=== PATIENT | male | born 1945 | race Asian ===

== ENCOUNTER 2017-12-13 23:48 | Emergency (ER) | payer OTHER ==
[~2017-12-13] VITALS: Ht 170.2 cm; Wt 57.7 kg
[~2017-12-13 23:48] MED LIST: ASPI-556 PO; ATOR10TA84 PO; CLOP75 PO; FERR-89 PO; LISI-661 PO
[2017-12-14 00:55] LABS: HEMATOCRIT 43.8 % (41-53); HEMOGLOBIN 14.9 g/dL (13.5-17.5); MEAN CORPUSCULAR HEMOGLOBIN 31.1 pg (26.0-34.0); MEAN CORPUSCULAR HGB CONC 33.9 G/dL (31.0-37.0); MEAN CORPUSCULAR VOLUME 92 fL (80-100); PLATELET COUNT (AUTO) 265 K/uL (150-450); RED BLOOD CELL COUNT(AUTO) 4.78 MIL/uL (4.50-5.90); RED CELL DISTRIBUTION WIDTH 14.7 % (11.5-14.5)
[2017-12-14 00:57] LABS: CREATININE 1.35 mg/dL (0.60-1.30); POTASSIUM 4.6 mmol/L (3.5-5.1)
[2017-12-14 01:04] LABS: ALBUMIN 3.8 g/dL (3.4-5.0); BILIRUBIN,TOTAL 0.4 mg/dL (0.1-1.0); TOTAL PROTEIN, SERUM 7.3 g/dL (6.4-8.2)
[2017-12-14 01:23] LABS: BAND NEUTROPHILS % (MANUAL) 12 % (0-5); EOSINOPHILS % (MANUAL) 4 % (1-6); LYMPHOCYTES % (MANUAL) 7 % (22-44); MONOCYTES % (MANUAL) 7 % (2-9); SEGMENTED NEUTROPHILS % 70 % (40-70)
[2017-12-14] MEDS ORDERED: ACETAMINOPHEN 500 MG TABLET PO ONE (01:30)
[2017-12-14] MEDS ORDERED: ONDANSETRON HCL 4 MG/2 ML VIAL IVP ONE (01:30)
[2017-12-14] MEDS ORDERED: MECLIZINE HCL 25 MG TABLET PO ONE (01:30)
[2017-12-14 03:18] VITALS: BP 125/81
== END 2017-12-14 03:19 | disposition home or self-care (01) ==
LOC: EMS 23:49
DX: R42 Dizziness and giddiness (principal); D72.829 Elevated white blood cell count, unspecified
CPT/HCPCS: 36415; 70450; 71045; 80053; 84484; 85025; 93005; 96374; 99285; J2405